=== PATIENT | male | born 1970 | race Caucasian/White ===

== ENCOUNTER 2018-01-20 07:07 | Emergency (ER) | payer OTHER ==
[2018-01-20] MEDS ORDERED: Morphine 4 MG/ML VIAL ONE (08:07)
[2018-01-20] MEDS ORDERED: Lorazepam 2 MG/ML VIAL ONE (08:07)
[2018-01-20] MEDS ORDERED: diphenhydrAMINE 50 MG/ML VIAL ONE (08:08)
[2018-01-20] MEDS ORDERED: Metoclopramide 10 MG/10 ML UDCUP ONE (08:08)
[2018-01-20] MEDS ORDERED: Ondansetron ODT 4 MG TAB ONE (08:17)
[2018-01-20] MEDS ORDERED: Metoclopramide HCl 10 MG/2 ML VIAL IVP SCH (08:30)
[2018-01-20] MEDS ORDERED: Lidocaine 1% (PF) 30 ML VIAL ONE (08:42)
[2018-01-20 09:20] LABS: Color Of CSF Supernatant COLORLESS (Colorless); Tube # 2; Unspun CSF Color COLORLESS (Colorless)
[2018-01-20 09:24] LABS: CSF Source CSF; Clarity Clear (Clear); Tube # 1
[2018-01-20 09:31] LABS: CSF, Glucose 59 mg/dl (40-70); CSF, Protein 30 mg/dL (15-40)
[2018-01-20 09:35] LABS: RBC Count - Manual 34 /cumm (None Seen); WBC/NonHematics Count - Manual 1 /cumm (0-5)
[2018-01-20 09:39] LABS: CSF Source CSF; Clarity Clear (Clear); RBC Count - Manual 0 /cumm (None Seen); Tube # 4; WBC/NonHematics Count - Manual 0 /cumm (0-5)
--- NOTE | 2018-01-20 09:58 | CT ---
CT HEAD WITHOUT IV CONTRAST CT ANGIOGRAM HEAD WITH IV CONTRAST AND 3D RECONSTRUCTIONS: DATE: 01/20/18. HISTORY: Patient with headache. Family history of aneurysm. FINDINGS: NONCONTRAST CT HEAD: COMPARISON: 01/20/18 obtained from [facility] at 0539 hours. FINDINGS: There is no evidence of a hemorrhage, acute infarction, mass effect, or midline shift. Ventricular s ystem is normal in size, shape, and position. There has been no interval change from the prior exam. IMPRESSION: No acute intracranial abnormality. CT ANGIOGRAM HEAD WITH IV CONTRAST AND 3D RECONSTRUCTIONS: Distal bilateral internal carotid arteries are patent. Bilateral middle cerebral and anterior cerebr al arteries are patent. The distal vertebral arteries are codominant and patent. The basilar artery as well as bilateral posterior cerebral arteries and superior cerebellar arteries are patent. No br anch occlusion or focal stenosis is seen. There is no aneurysmal identified within the limitations o f the technique of this examination. IMPRESSION: 1. No focal stenosis or branch occlusion is seen involving the [place] or vertebrobasilar s ystem. 2. No intracranial aneurysm is identified within the limitations of the technique of this exam. POS: [facility]IC
[2018-01-20] MEDS ORDERED: Ketorolac Tromethamine 30 MG/ML VIAL ONE (10:29)
[2018-01-20] MEDS ORDERED: ISOVUE-370 76%-LOCM 1 ML ONE (13:35)
== END 2018-01-20 12:14 | disposition home or self-care (01) ==
LOC: ERS 07:07
DX: R51 Headache (principal); K21.9 Gastro-esophageal reflux disease without esophagitis; F17.220 Nicotine dependence, chewing tobacco, uncomplicated
CPT/HCPCS: 62270; 70496; 82945; 84157; 89051; 96361; 96374; 96375; J1200; J1885; J2001; J2060; J2270; J2765; Q0162